=== PATIENT | female | born 1980 | race African-American/Black ===

== ENCOUNTER 2017-02-28 06:35 | Emergency (ER) | payer OTHER ==
[~2017-02-28] VITALS: Ht 165.1 cm; Wt 88.5 kg
[~2017-02-28 06:35] MED LIST: AMOXICILLIN 50500 M1 PO; AMOXICILLIN 50500 MG PO; AMOXICILLIN875 MG PO; AUGMENTIN; BUTALB-APAP-CA1 EACH PO; CILOXAN5 ML OP; DARVOCET-N 1001 EACH PO; DIFLUCAN150 MG PO; ERYTHROMYCIN E3.5 G1 OPHTHALMIC; FIORICET 50-321 EACH PO; FLAGYL ER750 MG PO; FLONASE 0.05%50 MCG NASAL; IBUPROFEN 800800 M1 PO; IBUPROFEN 800800 MG PO; NAPROSYN500 MG PO; NASAL SPRAY30 ML; NOHOMEMEDICATIONS; NORCO 5-325 TA1 EACH PO; NORFLEX100 MG PO; PERCOCET 5-3251 EACH PO; PHENERGAN 25 MG25 M1 PO; SINGULAIR; SUMATRIPTAN; TOPAMAX50 MG PO; TUSSIONEX PENN473 ML PO; ULTRAM 50MG TAB50 MG PO; ZOFRAN ODT4 MG PO; ZPAK PO
[2017-02-28] MEDS ORDERED: NAPROSYN500 MG PO ×2 (07:48→07:57)
[2017-02-28 08:02] VITALS: BP 152/100
== END 2017-02-28 08:33 | disposition home or self-care (01) ==
LOC: ER 06:35
DX: R51 Headache (principal); J02.9 Acute pharyngitis, unspecified; H92.01 Otalgia, right ear; F10.99 Alcohol use, unspecified with unspecified alcohol-induced disorder; Z98.890 Other specified postprocedural states

== ENCOUNTER 2017-04-11 13:06 | Emergency (ER) | payer OTHER ==
[~2017-04-11] VITALS: Ht 165.1 cm; Wt 89.8 kg
[2017-04-11] MEDS ORDERED: METHYLPREDNISOLO4 M1 PO (13:58)
[2017-04-11] MEDS ORDERED: CORTISPORIN OTI10 M2 OTIC (13:59)
[2017-04-11] MEDS ORDERED: MUCINEX COLD-F177 ML PO (13:59)
[2017-04-11] MEDS ORDERED: TORADOL 10 MG T10 MG PO (14:51)
[2017-04-11 15:00] VITALS: BP 117/66
== END 2017-04-11 15:01 | disposition home or self-care (01) ==
LOC: ER 13:06
DX: R51 Headache (principal); F10.99 Alcohol use, unspecified with unspecified alcohol-induced disorder

== ENCOUNTER 2018-03-06 22:35 | Emergency (ER) | payer BC ==
[~2018-03-06] VITALS: Ht 165.1 cm; Wt 94.8 kg
[~2018-03-06 22:35] MED LIST changes: +CORTISPORIN OTI10 M2 OTIC; +KEFLEX500 M1 PO; +METHYLPREDNISOLO4 M1 PO; +MUCINEX COLD-F177 ML PO; +TORADOL 10 MG T10 MG PO
[2018-03-06 23:09] LABS: URINE BILIRUBIN NEGATIVE (Negative); URINE BLOOD 1+ (Negative); URINE CLARITY CLEAR; URINE COLOR YELLOW; URINE GLUCOSE-RANDOM* NEGATIVE (Negative); URINE KETONES 1+ (Negative); URINE LEUKOCYTES-REFLEX NEGATIVE (Negative); URINE NITRITE-REFLEX NEGATIVE (Negative); URINE PROTEIN (DIPSTICK) NEGATIVE (Negative); URINE UROBILINOGEN 0.2 E.U./dl (0.2-1.0)
[2018-03-06 23:17] LABS: ABSOLUTE NEUTROPHILS 4.4 thou/uL (1.4-8.2); BASOPHILS 0.4 % (0.0-2.0); HEMATOCRIT 37.9 % (37.0-47.0); HEMOGLOBIN 12.9 gm/dL (12.0-15.0); LYMPHOCYTES 22.3 % (24.0-44.0); MCH 29.8 pg (26.0-34.0); MCHC 34.1 g/dL (28.0-37.0); MCV 87.4 fL (80.0-100.0); MONOCYTES 9.9 % (1.0-8.0); PLATELET COUNT 257 thou/uL (150-400); POLYS 66.4 % (36.0-66.0); RBC 4.33 mil/uL (4.20-5.00); RDW 15.4 % (10.5-14.5); WBC 6.6 thou/uL (4.0-11.0)
[2018-03-06 23:17] LABS: AMORPHOUS URATES Many /LPF (None Seen); BACTERIA-REFLEX 1-9 Few /HPF (None Seen); CASTS None Seen /LPF (None Seen); CRYSTALS None Seen /LPF (None Seen); MUCUS None Seen strn/LPF (None Seen); SQUAMOUS 0-3 Few /LPF (0-3); URINE RBC 0-2 Rare /HPF (0-2); URINE WBC-REFLEX None Seen /HPF (0-5)
[2018-03-06 23:24] LABS: CALCIUM 8.9 mg/dL (8.5-10.1); POTASSIUM 3.6 mmol/L (3.5-5.1)
[2018-03-06 23:30] LABS: ALBUMIN 3.9 g/dL (3.4-5.0); DIRECT BILIRUBIN 0.1 mg/dL (<0.1-0.3); TOTAL BILIRUBIN 0.6 mg/dL (<0.1-1.0); TOTAL PROTEIN 7.9 g/dL (6.4-8.2)
[2018-03-07] MEDS ORDERED: REGLAN 5 MG TAB5 MG PO (01:38)
[2018-03-07 01:54] VITALS: BP 116/79
== END 2018-03-07 01:56 | disposition home or self-care (01) ==
LOC: ER 22:35
PROVIDERS: Emergency Medicine
DX: K52.9 Noninfective gastroenteritis and colitis, unspecified (principal); R51 Headache; N80.9 Endometriosis, unspecified; Z87.891 Personal history of nicotine dependence